=== PATIENT | female | born 1960 | race Caucasian/White ===

== ENCOUNTER 2016-11-24 01:07 | Emergency (ER) | payer OTHER ==
[~2016-11-24] VITALS: Ht 172.7 cm; Wt 111.6 kg
[~2016-11-24 01:07] MED LIST: CALCIUM600 MG PO; CELEXA10 MG PO; CLARITIN10 M2 PO; CLONIDINE HCL0.1 MG PO; FEMARA2.5 MG PO; HYDROCHLOROTH12.5 M1 PO; NORCO 7.5-3251 EACH PO; TIROSINT25 MCG PO; VITAMIN D2000 UNIT PO
[2016-11-24] MEDS ORDERED: NORCO 10-325 T1 EACH PO (01:37)
[2016-11-24] MEDS ORDERED: [UNRECOGNIZED DRUG - REMARK] PO (01:39)
[2016-11-24] MEDS ORDERED: CALCIUM + D3 E1 EACH PO (01:41)
[2016-12-22] MEDS ORDERED: ALLEGRA ALLERGY60 MG PO (14:34)
[2016-12-22] MEDS ORDERED: NALTREXONE HCL50 MG PO (14:35)
[2017-02-24] MEDS ORDERED: AUGMENTIN 500-1 EACH PO (20:44)
[2017-02-24] MEDS ORDERED: THERAFLU EXP245.5 ML PO (20:44)
== END 2016-11-24 03:19 | disposition home or self-care (01) ==
LOC: ED 01:07
DX: M25.562 Pain in left knee (principal); Z90.710 Acquired absence of both cervix and uterus; Z88.5 Allergy status to narcotic agent; Z79.899 Other long term (current) drug therapy
CPT/HCPCS: 93971; 96372; 99284; J2270; J2550